=== PATIENT | female | born 1995 | race Caucasian/White ===

== ENCOUNTER 2017-06-05 01:52 | Observation (INO) | payer MEDICAID, OTHER ==
[2017-06-05 03:03] VITALS: BP 116/62; PULSE 82
[2017-06-05 05:01] LABS: Collection Type VOID; Leukocyte Esterase TRACE (NEGATIVE)
[2017-06-05 05:02] LABS: Bacteria MODERATE /HPF (NEGATIVE); Bilirubin NEGATIVE (NEGATIVE); Blood NEGATIVE Ery/ul (0-5); COMPLETE URINE MICROSCOPIC? YES; Epithelial Cells MODERATE /HPF (FEW); Glucose NEGATIVE (NEGATIVE); WBC 0-2 /HPF (0-5)
== END 2017-06-05 03:54 | disposition home or self-care (01) ==
LOC: UNDOADMOB 01:52 → OB 01:52 → UNDODISOB 03:54
PROVIDERS: ADMIT Family Medicine; ATTEND Family Medicine
DX: Z34.82 Encounter for supervision of other normal pregnancy, second trimester (principal)
CPT/HCPCS: 80307; 81000; G0378